=== PATIENT | male | born 1995 | race Caucasian/White ===

== ENCOUNTER 2023-03-05 20:22 | Emergency (ER) | payer OTHER, SELFPAY ==
[2023-03-05 20:25] VITALS: BP 134/88; PULSE 67; RESP 18; TEMP 36.2; O2SAT 97; BMI 28.3
[2023-03-05 20:51] VITALS: BP 135/81; PULSE 60; RESP 17; TEMP 36.9; O2SAT 98
--- NOTE | 2023-03-05 21:24 | ED_ITS ---
HPI - Dental/Oral General Chief complaint: Dental/Oral Stated complaint: dental pain Time Seen by Provider: 03/05/23 21:02 Source: patient Mode of arrival: ambulatory Limitations: no limitations History of Present Illness HPI Narrative: To the emergency room complaining of dental pain. Patient has an appointment pending with did not in couple of months to have his wisdom teeth removed. However, today complaining of left mandibular pain, the wisdom tooth is causing the pain. No fever chills. Related Data Previous Rx's Medication Instructions Recorded ketorolac 10 mg tablet 10 mg PO TID PRN pain #10 tabs 03/05/23 penicillin V potassium 500 mg 500 mg PO TID 10 days #29 tabs 03/05/23 tablet Allergies Allergy/AdvReac Type Severity Reaction Status Date / Time No Known Allergies Allergy Verified 03/05/23 21:24 Review of Systems Review of Systems: Constitutional : No Weight loss, No Fever, No Chills, No Night Sweats, No Fatigue, No Malaise ENT/Mouth : Complaining of dental pain, No Hearing loss, No Ear Pain, No Nasal Congestion, No Sinus Pain, No Hoarseness, No sore throat, No Rhinorrhea, No Swallowing Difficulty Eyes: No Eye Pain, No Swelling, No Redness, No Foreign Body, No Discharge, No Vision Changes Cardiovascular : No Chest Pain, No SOB, No Dyspnea on Exertion, No Orthopnea, No Edema, No Palpitations Respiratory : No Cough, No Sputum, No Wheezing, No Smoke Exposure, No Dyspnea Gastrointestinal : No Nausea, No Vomiting, No Diarrhea, No Constipation, No abdominal Pain, No Hematochezia, No Melena Genitourinary : no irregular bleeding, No Dysuria, No Urinary Frequency, No Hematuria, No Urinary Incontinence, No Urgency, No Flank Pain, No Urinary Flow Changes, No Hesitancy Musculoskeletal : No joint pain, No Myalgias, No Joint Swelling Skin : No Skin Lesions, No rash Neuro : No Weakness, No Numbness, No Paresthesias, No Loss of Consciousness, No Dizziness, No Headache Psych : No Anxiety/Panic, No Depression, No SI/HI/AH/VH, No Social Issues, Heme/Lymph: No Bruising, No Bleeding,No Lymphadenopathy Endocrine : No Polyuria, No Polydipsia, No Temperature Intolerance Physical Exam Vital Signs: Vital Signs: Last Vital Signs Temp 98.4 F 03/05/23 20:51 Pulse 60 03/05/23 20:51 Resp 17 03/05/23 20:51 BP 135/81 03/05/23 20:51 Pulse Ox 98 03/05/23 20:51 O2 Del Method Room Air 03/05/23 20:51 BMI result Body Mass Index 28.3 Const: Other: Appearance: Alert. Oriented X3. No acute distress. Eyes: Pupils equal, round and reactive to light. ENT: Pharynx normal. Cavity in the left last molar mandibular side, no visible abscess that could possibly be drained Neck: Normal inspection. Neck supple. No lymph nodes noted. No crepitus CVS: Normal heart rate and rhythm. Pulses normal. Normal S1 and S2 Respiratory: No respiratory distress. Breath sounds normal. No Wheezing. No rales Abdomen: Soft and nontender. No rigidity. No distention. Skin: Skin warm and dry. Normal skin color. Normal skin turgor. Extremities: No lower extremity edema. No Lacerations. No Rash Neuro: Oriented X 3. No motor deficit. No sensory deficit. Moving all extremities. No slurred speech. CN 2 through 12 grossly intact Psych: calm, cooperative, normal affect Medical Decision Making Medical Decision Making MDM Narrative: I discussed the physical exam with the patient, patient was given a dose of IM Toradol and p.o. penicillin. Patient will follow-up with his dentist. Differential Diagnosis Differential Diagnoses: The differential diagnosis associated with the presen tation includes (Cavity, chipped tooth, dental abscess) Discharge Plan Discharge Clinical Impression: Toothache Patient Disposition: Home, Self-Care Instructions: Toothache (ED) Additional Instructions: Please follow-up with your primary care physician tomorrow. If you have any worsening or new symptoms, please return to the emergency room or call 911 Prescriptions: New penicillin V potassium 500 mg tablet 500 mg PO TID 10 Days Qty: 29 0RF ketorolac 10 mg tablet 10 mg PO TID PRN (Reason: pain) Qty: 10 0RF Rx Instructions: Do not use this medication with ibuprofen/NSAIDs only Tylenol if needed
[2023-03-05] MEDS: Penicillin V Potassium 250 MG TABLET 500 MG PO (21:35)
[2023-03-05] MEDS: Ketorolac Tromethamine 60 MG/2 ML VIAL IM (21:37)
--- NOTE | 2023-03-05 21:43 | PC.NURSE ---
pt medicated per OCT for 8 dental pain.
== END 2023-03-05 21:44 | disposition home or self-care (01) ==
LOC: HO.ED 21:39
PROVIDERS: Emergency Provider Emergency Medicine
DX: K08.89 Other specified disorders of teeth and supporting structures (principal)
CPT/HCPCS: 96372; 99283; 99284; J1885